=== PATIENT | male | born 1985 | race Caucasian/White ===

== ENCOUNTER 2019-08-05 21:09 | Emergency (ER) | payer OTHER ==
[2019-08-05] MEDS ORDERED: CHLORHEXIDINE GLUCONATE 4 % 15 ML UD TOP ONE (21:11)
[2019-08-05] MEDS ORDERED: LIDOCAINE 1% 10 ML VIAL INJ ONE (21:11)
[2019-08-05] MEDS ORDERED: BUPIVACAINE 0.5% 30 ML VIAL INJ ONE ×2 (21:18→21:34)
[2019-08-05] MEDS ORDERED: TETANUS,DIPHTHERIA,PERTUSSIS 1 EA SYG IM ONE (21:34)
--- NOTE | 2019-08-05 21:34 | ED.PDOC ---
History of Present Illness - General Chief Complaint: Laceration Stated Complaint: left thumb laceration Time Seen by Provider: 08/05/19 21:31 - History of Present Illness Initial Comments: 33 y/o male with L thumb laceration [place] laceration to index finger L suffered in a table saw accident. no recent illnesses, no other injuries Allergies/Adverse Reactions: Allergies NO KNOWN ALLERGY Allergy (Verified 08/05/19 21:31) Home Medications: Ambulatory Orders Acetaminophen W/ Codeine [Tylenol W/ CODEINE #3] 1 ea PO Q6HR PRN 7 Days #20 08/05/19 Review of Systems - Review of Systems Skin: States: other - laceration to thumb Family Medical History - Family History Mother Hx Family Hypertension: Yes Physical Exam - Physical Exam General Appearance: Alert Neck: full range of motion, supple Respiratory: no respiratory distress Skin Exam: other - 4 cm total length laceration involving the tip, somewhat macerated with some soft tissue auvlsion. volar aspect L index finger over PIP 2 cm laceration Progress - Progress Progress: 08/05/19 22:26 Procedure: after thorough anesthesia with a digital block to L thumb, an island of tissue was tacked down but the majority of the injury is avulsed. I placed 5 5-0 prolene simple interrupted sutures Procedure: 2cm lac to L index repaired with 5 5-0 prolene simple interrupted. Departure - Departure Clinical Impression: Accidental laceration Time of Disposition: 22:30 Disposition: Discharge to Home or Self Care Condition: Good Departure Forms: ED Discharge - Pt. Copy, Patient Portal Self Enrollment Instructions: DI for Laceration Repair -- Finger, DI for [place] Laceration (Not Requiring Sutures) Prescriptions: Acetaminophen W/ Codeine [Tylenol W/ CODEINE #3] 1 ea PO Q6HR PRN 7 Days #20 PRN Reason: Moderate To Severe Pain Home Medications: Ambulatory Orders Acetaminophen W/ Codeine [Tylenol W/ CODEINE #3] 1 ea PO Q6HR PRN 7 Days #20 08/05/19
[2019-08-05 21:55] VITALS: O2SAT 96
[2019-08-05 22:49] VITALS: BP 136/86; TEMP 98.5
--- NOTE | 2019-08-06 16:43 | RAD ---
EXAM DESCRIPTION: Fingers,Left CLINICAL HISTORY: 33 years Male lecaration from table saw COMPARISON: None. TECHNIQUE: LEFT thumb, three views FINDINGS: No acute fractures or dislocations are identified. No osseous destructive lesions. No radiopaque foreign object noted. IMPRESSION: No acute fracture is identified. Electronically signed by: Nichole Burrell MD 08/05/2019 10:38 PM CDT
== END 2019-08-05 22:50 | disposition home or self-care (01) ==
LOC: ER 21:09
DX: S61.211A Laceration without foreign body of left index finger without damage to nail, initial encounter (principal); S61.012A Laceration without foreign body of left thumb without damage to nail, initial encounter; W31.2XXA Contact with powered woodworking and forming machines, initial encounter; Y92.9 Unspecified place or not applicable